=== PATIENT | male | born 1950 | race Caucasian/White ===

== ENCOUNTER 2020-06-28 09:09 | Emergency (ER) | payer MEDICARE, SELFPAY ==
[2020-06-28 09:20] VITALS: PULSE 79; RESP 16; TEMP 36.7; O2SAT 97
--- NOTE | 2020-06-28 09:35 | ECG_ITS ---
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 Measurements Intervals [place] Rate: 75 P: 46 [place]: 136 QRS: 32 QRSD: 90 T: 38 QT: 391 QTc: 439 Interpretive Statements SINUS RHYTHM Compared to ECG 05/17/2016 14:19:18 Sinus bradycardia no longer present Electronically Signed On 06-28-2020 20:09:48 ENVIRONMENTAL SERVICES SPECIALIST by Arin Duran M.D. [id number]
--- NOTE | 2020-06-28 09:35 | CT_ITS ---
WS: [id number] CT HEAD NONCONTRAST HISTORY: Symptoms of Acute Stroke TECHNIQUE: Contiguous axial imaging performed through the brain in 2.5 mm imaging. Bone and soft tiss ue windows. Sagittal and coronal reformats reviewed. All CT scans at [facility] use at ast one of these dose optimization techniques: automated exposure control; mA and/or kV adjustment pe r patient size (includes targeted exams where dose is matched to clinical indication); or iterative r econstruction. DLP: 856.99 mGy.cm COMPARISON: 04/26/2016 No acute intracranial hemorrhage, midline shift or mass effect. No atrophy or prior infarcts or herniation. Ventricles: Normal size with no hydrocephalus. Mild atherosclerosis intracranial carotid arteries. Paranasal sinuses: As visualized are clear. Mastoid air cells: Well pneumatized. Calvarium and scalp: Skull is intact with no soft tissue edema or swelling. CT/CT head wo con* [id number] IMPRESSION: No acute intracranial hemorrhage or edema.
--- NOTE | 2020-06-28 09:35 | XRR_ITS ---
PROCEDURE INFORMATION: Exam: XR Chest, 1 View Exam date and time: 06/28/2020 9:51 AM Age: 70 years old Clinical indication: Other: Weakness; Prior surgery; Surgery type: 2 stents TECHNIQUE: Imaging protocol: XR of the chest Views: 1 view. COMPARISON: CR Chest 1 [place] [id number] 08/28/2013 10:30 AM FINDINGS: Lungs: Emphysema Lungs are well aerated without a focal area of consolidation. Pleural space: Unremarkable. No pleural effusion. No pneumothorax. Heart/Mediastinum: The cardiac silhouette appears enlarged, some of which is magnification related to the AP projection. Bones/joints: Unremarkable. XR/XR chest 1V portable [id number] IMPRESSION: Lungs are well aerated without a focal area of consolidation.
[2020-06-28 09:49] LABS: Basophils # 0.1 10^3/uL (0.0-0.1); Eosinophils # 0.1 10^3/uL (0.0-0.8); Eosinophils % 1.6 %; Hematocrit 44.8 % (42.0-52.0); Hemoglobin 14.7 g/dL (11.7-16.6); Lymphocytes # 1.1 10^3/uL (0.8-4.8); Lymphocytes % 21.7 %; Mean Corpuscular HGB Conc 32.8 g/dL (30.0-36.0); Mean Corpuscular Hemoglobin 32.1 pg (28.0-34.0); Mean Corpuscular Volume 97.8 fL (80-94); Mean Platelet Volume 9.5 fL (7.4-10.4); Monocytes # 0.3 10^3/uL (0.2-0.9); Monocytes % 6.6 %; Neutrophils # 3.54 10^3/uL (1.8-7.7); Neutrophils % 68.7 %; Nucleated Red Blood Cells % 0 %; Platelet Count 174 10^3/cmm (130-400); Red Blood Count 4.58 10^6/uL (4.1-5.3); Red Cell Distribution Width 13.2 % (12.1-15.1); White Blood Count 5.2 10^3/uL (4.0-10.0)
[2020-06-28] MEDS: sodium chloride 0.9% 1,000 ML 999 ML IV (09:58)
[2020-06-28] MEDS: metoclopramide 5 mg/mL SDV 2 mL 10 MG IVP (10:01)
[2020-06-28] MEDS: diphenhydrAMINE 50 mg/mL SDV 1mL IVP (10:04)
[2020-06-28 10:06] LABS: Troponin(5th) Baseline 7 ng/L (0-15)
--- NOTE | 2020-06-28 10:15 | W.ED.GENADLT ---
HPI - General Adult General: Chief complaint: General Medical Stated complaint: ELEVATED BP, SEVERE HEADACHE Time Seen by Provider: 06/28/20 09:21 Source: patient History of Present Illness: HPI narrative: Patient is a well-appearing 70-year-old male seen for multiple complaints. He states that he has had worsening headaches which he describes as right-sided, 8 of 10, throbbing, with extension down the backside of his neck. He is also over the same time. [place] generally weak with no lateralizing features to his weakness. He states he is here because he is worried that he might be having a stroke. He has no prior history of stroke or atrial fibrillation. He states that he has had several stents placed in his heart and that the stents have become clogged but there is no plan for intervention further with the stents. He denies history of stroke. He denies visual disturbance, lateralizing weakness or paresthesias, facial droop, slurred speech, and at the bedside endorses his history. He states that he gets headaches frequently, but that today's headache was worse than usual though of the same quality. He endorses nausea but no vomiting. He denies fever, loss of taste sensation, cough, chest pain, shortness of breath. He states that he feels wobbly on his legs when he tries to walk, but does not feel lightheaded or dizzy. He denies recent upper respiratory infection, sinus pressure, ear pain., Review of Systems General: Reports: 10 or more systems reviewed and unremarkable except in HPI and below PFSH ED PFSH: Medical History (Updated 06/28/20 @ 13:25 by Nikko Navarro MD) Arrhythmia ASHD (arteriosclerotic heart disease) GERD (gastroesophageal reflux disease) Hyperlipidemia Hypertension IBS (irritable bowel syndrome) Surgical History H/O hemorrhoidectomy History of shoulder surgery Family History Other CAD (coronary artery disease) Diabetes Hyperlipidemia Hypertension Stroke Social History Smoking and tobacco status: never smoked Alcohol intake: never Physical Exam Const: COMMON NORMALS: patient oriented x3 and alert ORIENTATION/CONSCIOUSNESS: Yes oriented to person HENMT: COMMON NORMALS: normocephalic and atraumatic HEAD & SCALP: normocephalic and atraumatic Eye: COMMON NORMALS: Equal, round and reactive pupils present, EOMs intact bilaterally and no scleral icterus PUPIL: Yes Equal, round and reactive pupils present Resp: COMMON NORMALS: normal respiratory effort and No retractions Cardio: COMMON NORMALS: regular rate, regular rhythm and No murmurs present (Cardio) RATE: regular rate RHYTHM: regular rhythm GI: COMMON NORMALS: Normal to inspection, nondistended, normoactive bowel sounds present, Soft to palpation and non-tender PALPATION: Yes Soft to palpation Neuro: COMMON NORMALS: patient oriented x3 SENSORIUM/ORIENTATION: Yes alert and Yes oriented to person CRANIAL NERVES: Yes CN normal except as noted SPEECH: speech normal SENSORY EXAM: No extremities or Trunk sensory exam abnormal MOTOR EXAM: 5/5 motor strength present throughout, Pronator motor function not present, no tremor noted and Normal motor muscle tone present throughout Skin: COMMON NORMALS: no rashes or lesions noted GENERAL SKIN EXAM: no rashes or lesions noted Course Vital Signs: Vital signs: Vital Signs Temperature 98.1 F 06/28/20 09:20 Pulse Rate 85 06/28/20 12:35 Respiratory Rate 16 06/28/20 09:20 Blood Pressure 142/77 06/28/20 12:35 Pulse Oximetry 96 06/28/20 12:35 MDM - General Adult MDM Narrative: Medical decision making narrative: Patient remained hemodynamically stable throughout ED course. Blood pressure dropped to normal after headache pain was relieved with IV fluid, Benadryl, Reglan, Toradol, Decadron. CT head, EKG, chest x-ray, labs are reassuring. I do not suspect stroke, ID, or any other emergent process warranting further work-up at this time. I suspect he is suffering from an worse than usual migraine. He will be discharged home in stable and improved condition with follow-up to primary care as needed. Lab Data: Labs: Lab Results 06/28/20 06/28/20 06/28/20 Range/Units 09:43 09:43 09:43 WBC 5.2 (4.0-10.0) 10^3/ uL RBC 4.58 (4.1-5.3) 10^6/u L Hgb 14.7 (11.7-16.6) g/dL Hct 44.8 (42.0-52.0) % MCV 97.8 H (80-94) fL MCH 32.1 (28.0-34.0) pg MCHC 32.8 (30.0-36.0) g/dL RDW 13.2 (12.1-15.1) % Plt Count 174 (130-400) 10^3/c mm MPV 9.5 (7.4-10.4) fL Neut % (Auto) 68.7 % Lymph % (Auto) 21.7 % [place] % (Auto) 6.6 % Eos % (Auto) 1.6 % Baso % (Auto) 1.0 % Neut # (Auto) 3.54 (1.8-7.7) 10^3/u L Lymph # (Auto) 1.1 (0.8-4.8) 10^3/u L [place] # (Auto) 0.3 (0.2-0.9) 10^3/u L Eos # (Auto) 0.1 (0.0-0.8) 10^3/u L Baso # (Auto) 0.1 (0.0-0.1) 10^3/u L Nucleated RBC % (a uto) 0 % Nucleated RBCs # 0.0 /100WBC Sodium 139 (136-145) mmol/L Potassium 4.1 (3.5-5.1) mmol/L Chloride 102 (98-107) mmol/L Carbon Dioxide 26 (22-29) mmol/L Anion Gap 15.1 (5-19) BUN 13 (8-23) mg/dL Creatinine 0.9 (0.7-1.2) mg/dL GFR Calculation 83.7 L (90-130) mL/min Glucose 133 H (65-115) mg/dL Calculated Osmolal ity 290 (285-295) mOsm/k g Calcium 10.0 (8.5-10.5) mg/dL Total Bilirubin 0.5 (0.15-1.2) mg/dL AST 30 (0-40) U/L ALT 27 (0-41) U/L Alkaline Phosphata se 68 (40-130) IU/L Troponin T Baselin e 7 (0-15) ng/L Troponin T 120 Min [place] (0-15) ng/L Delta Troponin T (0-10) ABS# Total Protein 6.6 (6.6-8.7) g/dL Albumin 4.7 (3.5-5.2) g/dL Globulin 1.9 (1.3-4.6) g/dL 06/28/20 Range/Units 10:45 WBC (4.0-10.0) 10^3/ uL RBC (4.1-5.3) 10^6/u L Hgb (11.7-16.6) g/dL Hct (42.0-52.0) % MCV (80-94) fL MCH (28.0-34.0) pg MCHC (30.0-36.0) g/dL RDW (12.1-15.1) % Plt Count (130-400) 10^3/c mm MPV (7.4-10.4) fL Neut % (Auto) % Lymph % (Auto) % [place] % (Auto) % Eos % (Auto) % Baso % (Auto) % Neut # (Auto) (1.8-7.7) 10^3/u L Lymph # (Auto) (0.8-4.8) 10^3/u L [place] # (Auto) (0.2-0.9) 10^3/u L Eos # (Auto) (0.0-0.8) 10^3/u L Baso # (Auto) (0.0-0.1) 10^3/u L Nucleated RBC % (a uto) % Nucleated RBCs # /100WBC Sodium (136-145) mmol/L Potassium (3.5-5.1) mmol/L Chloride (98-107) mmol/L Carbon Dioxide (22-29) mmol/L Anion Gap (5-19) BUN (8-23) mg/dL Creatinine (0.7-1.2) mg/dL GFR Calculation (90-130) mL/min Glucose (65-115) mg/dL Calculated Osmolal ity (285-295) mOsm/k g Calcium (8.5-10.5) mg/dL Total Bilirubin (0.15-1.2) mg/dL AST (0-40) U/L ALT (0-41) U/L Alkaline Phosphata se (40-130) IU/L Troponin T Baselin e (0-15) ng/L Troponin T 120 Min [place] 6.15 (0-15) ng/L Delta Troponin T -0.85 L (0-10) ABS# Total Protein (6.6-8.7) g/dL Albumin (3.5-5.2) g/dL Globulin (1.3-4.6) g/dL EKG Data^: EKG 1: EKG interpretation date: 06/28/20 EKG interpretation time: 09:26 Interpretation: Normal sinus rhythm, rate of 75, no ST elevation or depression, intervals within normal limits. Computer generated interpretation: Chest X-Ray 06/28/20 09:35 IMPRESSION: Lungs are well aerated without a focal area of consolidation. Head CT 06/28/20 09:35 IMPRESSION: No acute intracranial hemorrhage or edema. Discharge Plan Discharge Patient Disposition: Home Clinical Impression: Headache Condition: Stable Prescriptions: No Action desvenlafaxine succinate [Pristiq] 100 mg tablet extended release 24 hr 100 mg PO QAM RF: 0 aspirin 325 mg tablet 325 mg PO QAM RF: 0 rosuvastatin [Crestor] 40 mg tablet 40 mg PO BEDTIME RF: 0 magnesium L-lactate 84 mg tablet extended release 168 mg PO QAM RF: 0 multivitamin Tablet 1 tab PO QAM RF: 0 Dexilant 60 mg capsule,biphase delayed releas 60 mg PO EVERY OTHER DAY RF: 0 pyridoxine (vitamin B6) 100 mg tablet 100 mg PO QAM RF: 0 clonazepam 0.5 mg tablet 0.5 mg PO TID RF: 0 trazodone 50 mg tablet 50 mg PO BEDTIME PRN (Reason: Sleep) RF: 0 acetaminophen [Tylenol Extra Strength] 500 mg tablet 1,000 mg PO QAM RF: 0 omeprazole 40 mg capsule,delayed release(DR/EC) 40 mg PO EVERY OTHER DAY RF: 0 metoprolol tartrate 25 mg tablet 12.5 mg PO BID Qty: 90 RF: 3 Fish Oil 120 mg-180 mg- 60 mg-1,200 mg Capsule,Delayed Release(Dr/Ec) See Rx Instructions .ROUTE .COMPLEX RF: 0 lisinopril 5 mg tablet 5 mg PO BEDTIME RF: 0 Discharge Orders: Discharge ED (Routine); Ordered 06/28/20 Ordered By: Nikko Navarro Referrals: Linn Baugh MD [Primary Care Provider] - Discharge Diet: Advance as tolerated Discharge Activity: Increase activity as tolerated Patient Instructions: Headache - Migraine (Adult) Coding Level of Care Code ED Civil Design Technician for Chg Fwd Exam Comprehensive
[2020-06-28 10:25] VITALS: BP 158/94; O2SAT 96
[2020-06-28 10:57] LABS: Alanine Aminotransferase 27 U/L (0-41); Albumin Level 4.7 g/dL (3.5-5.2); Alkaline Phosphatase 68 IU/L (40-130); Anion Gap 15.1 (5-19); Aspartate Amino Transferase 30 U/L (0-40); Blood Urea Nitrogen 13 mg/dL (8-23); Carbon Dioxide 26 mmol/L (22-29); Chloride 102 mmol/L (98-107); Globulin 1.9 g/dL (1.3-4.6); Glomerular Filtration Rate 83.7 mL/min (90-130); Glucose 133 mg/dL (65-115); Osmolality Calculated 290 mOsm/kg (285-295); Potassium 4.1 mmol/L (3.5-5.1); Sodium 139 mmol/L (136-145); Total Bilirubin 0.5 mg/dL (0.15-1.2); Total Protein 6.6 g/dL (6.6-8.7)
[2020-06-28 11:22] LABS: Troponin 5 2HR 6.15 ng/L (0-15)
[2020-06-28 11:24] LABS: Troponin 5 2HR Delta -0.85 ABS# (0-10)
[2020-06-28 11:25] VITALS: BP 164/84; PULSE 71; O2SAT 98
[2020-06-28] MEDS: ketorolac 30 mg/mL INJ 15 MG IVP (12:00)
[2020-06-28] MEDS: dexamethasone 4 mg/mL INJ 6 MG IVP (12:03)
[2020-06-28 12:35] VITALS: BP 142/77; PULSE 85; O2SAT 96
[2020-06-28 13:31] VITALS: BP 189/90; PULSE 92; RESP 16; O2SAT 96
== END 2020-06-28 13:31 | disposition home or self-care (01) ==
PROVIDERS: Emergency Provider Student in an Organized Health Care Education/Training Program; PCP Family Medicine
DX: R51.9 Headache, unspecified (principal); Z79.82 Long term (current) use of aspirin; E78.5 Hyperlipidemia, unspecified; I10 Essential (primary) hypertension
CPT/HCPCS: 12345; 36415; 70450; 71045; 80053; 84484; 85025; 93005; 96361; 96374; 96375; 99283; J1100; J1200; J1885; J2765; J7030